=== PATIENT | female | born 1975 | race African-American/Black ===

== ENCOUNTER 2020-06-04 10:19 | Emergency (ER) | payer MEDICAID ==
[~2020-06-04] VITALS: Ht 154.9 cm; Wt 58.0 kg
[2020-06-04] MEDS ORDERED: KETOROLAC 60MG/2ML VIAL IM ONE (12:00)
[2020-06-04] MEDS ORDERED: IBUP-2028 MT (12:49)
[2020-06-04 13:22] VITALS: BP 125/79
== END 2020-06-04 13:23 | disposition home or self-care (01) ==
LOC: ER 10:19
DX: M54.5 Low back pain (principal); M51.06 Intervertebral disc disorders with myelopathy, lumbar region
CPT/HCPCS: 72100; 96372; 99283; J1885